=== PATIENT | male | born 1960 | race Caucasian/White ===

== ENCOUNTER → 2017-04-14 | Outpatient (CLI) | payer OTHER ==
[2017-04-14 08:11] LABS: HEMATOCRIT 44.2 % (39.2-51.8); HEMOGLOBIN 14.9 g/dL (13.7-18.0); WHITE BLOOD COUNT 5.4 x10^3/uL (3.4-10)
[2017-04-14 08:22] LABS: ASPARTATE AMINO TRANSFERASE 22 U/L (15-37); BLOOD UREA NITROGEN 19 mg/dL (7-18)
== END | disposition home or self-care (01) ==
LOC: LAB 07:53
PROVIDERS: ATTEND Internal Medicine
DX: Z12.11 Encounter for screening for malignant neoplasm of colon (principal); Z79.899 Other long term (current) drug therapy
CPT/HCPCS: 36415; 80053; 80061; 81003; 82306; 83036; 84153; 84443; 85025; G0103

== ENCOUNTER → 2018-09-17 | Outpatient (CLI) | payer OTHER ==
[2018-09-17 07:42] LABS: CULTURE INDICATED? NO; MICROSCOPIC NOT IND
[2018-09-17 07:49] LABS: ALANINE AMINOTRANSFERASE 30 U/L (12-78); ALBUMIN 3.9 g/dL (3.4-5.0); ANION GAP 4 mmol/L (5-15); BASOPHILS # (AUTO) 0.02 x10^3/uL (0-0.1); BASOPHILS % (AUTO) 0 % (0-1); CALCIUM 8.8 mg/dL (8.5-10.1); CHLORIDE 107 mmol/L (98-107); CHOLESTEROL, TOTAL 238 mg/dL (140-239); CREATININE 1.07 mg/dL (0.7-1.3); EOSINOPHILS # (AUTO) 0.09 x10^3/uL (0-0.4); EOSINOPHILS % (AUTO) 2 % (1-7); LYMPHOCYTES % (AUTO) 39 % (22-44); MD NO; MEAN CORPUSCULAR HEMOGLOBIN 29.8 pg (27.5-34.5); MEAN CORPUSCULAR HGB CONC 33.4 g/dL (33.2-36.2); MEAN CORPUSCULAR VOLUME 89.1 fL (81-97); MEAN PLATELET VOLUME 8.2 fL (7.4-10.4); MONOCYTES # (AUTO) 0.38 x10^3/uL (0.2-0.8); MONOCYTES % (AUTO) 7 % (2-9); NEUTROPHILS # (AUTO) 2.63 x10^3/uL (1.8-6.8); NEUTROPHILS % (AUTO) 51 % (42-75); PLATELET COUNT 285 x10^3/uL (130-400); RED CELL DISTRIBUTION WIDTH 13.8 % (9.4-14.8)
[2018-09-17 08:00] LABS: ALKALINE PHOSPHATASE 55 U/L (45-117); BILIRUBIN,TOTAL 0.5 mg/dL (0.2-1.0); CHOL/HDL RATIO 2.9; HDL CHOL % 34 % (26-37); HDL CHOLESTEROL (DIRECT) 81 mg/dL (40-60); LDL CHOLESTEROL,CALCULATED 142 mg/dL (54-169); LDL/HDL RATIO 1.8 (0.5-3.0); PSA SCREEN 2.34 ng/mL (0.00-4.00); TOTAL PROTEIN 7.5 g/dL (6.4-8.2); TRIGLYCERIDES 74 mg/dL (50-200); VLDL CHOLESTEROL 15 mg/dL (0-25)
[2018-09-17 08:02] LABS: HEMOGLOBIN A1C 6.1 % (4.2-6.3)
== END | disposition home or self-care (01) ==
LOC: LAB 07:13
PROVIDERS: ATTEND Internal Medicine
DX: Z00.00 Encounter for general adult medical examination without abnormal findings (principal)
CPT/HCPCS: 36415; 80053; 80061; 81003; 82306; 83036; 84443; 85025; G0103

== ENCOUNTER → 2020-01-21 | Outpatient (CLI) | payer OTHER ==
[2020-01-21 09:11] LABS: ALANINE AMINOTRANSFERASE 27 U/L (12-78); ALBUMIN 3.8 g/dL (3.4-5.0); ANION GAP 5 mmol/L (5-15); BASOPHILS # (AUTO) 0.03 x10^3/uL (0-0.1); BASOPHILS % (AUTO) 1 % (0-1); CALCIUM 9.2 mg/dL (8.5-10.1); CHLORIDE 109 mmol/L (98-107); EOSINOPHILS # (AUTO) 0.07 x10^3/uL (0-0.4); EOSINOPHILS % (AUTO) 1 % (1-7); LYMPHOCYTES # (AUTO) 1.88 x10^3/uL (1-3.4); LYMPHOCYTES % (AUTO) 36 % (22-44); MD NO; MEAN CORPUSCULAR HEMOGLOBIN 29.4 pg (27.5-34.5); MEAN CORPUSCULAR VOLUME 89.1 fL (81-97); MEAN PLATELET VOLUME 7.7 fL (7.4-10.4); MONOCYTES # (AUTO) 0.43 x10^3/uL (0.2-0.8); MONOCYTES % (AUTO) 8 % (2-9); NEUTROPHILS # (AUTO) 2.75 x10^3/uL (1.8-6.8); NEUTROPHILS % (AUTO) 53 % (42-75); PLATELET COUNT 338 x10^3/uL (130-400); RED BLOOD COUNT 4.86 x10^6/uL (4.38-5.82); RED CELL DISTRIBUTION WIDTH 13.5 % (9.4-14.8)
[2020-01-21 09:15] LABS: MICROSCOPIC NOT IND
[2020-01-21 09:22] LABS: ALKALINE PHOSPHATASE 58 U/L (45-117); BILIRUBIN,TOTAL 0.6 mg/dL (0.2-1.0); CHOL/HDL RATIO 3.1; CHOLESTEROL, TOTAL 239 mg/dL (140-239); HDL CHOL % 32 % (26-37); HDL CHOLESTEROL (DIRECT) 76 mg/dL (40-60); LDL CHOLESTEROL,CALCULATED 152 mg/dL (54-169); TOTAL PROTEIN 7.6 g/dL (6.4-8.2); TRIGLYCERIDES 54 mg/dL (50-200); VLDL CHOLESTEROL 11 mg/dL (0-25)
== END | disposition home or self-care (01) ==
LOC: LAB 08:35
PROVIDERS: ATTEND Internal Medicine
DX: Z00.00 Encounter for general adult medical examination without abnormal findings (principal)
CPT/HCPCS: 36415; 80053; 80061; 83036; 84153; 84443; 85025; 86803

== ENCOUNTER 2021-02-15 07:42 | Outpatient (CLI) | payer OTHER ==
[2021-02-15 08:02] LABS: MICROSCOPIC NOT IND
[2021-02-15 08:12] LABS: ALANINE AMINOTRANSFERASE 32 U/L (12-78); ANION GAP 7 mmol/L (5-15); CALCIUM 8.9 mg/dL (8.5-10.1); CHLORIDE 107 mmol/L (98-107); CHOLESTEROL, TOTAL 260 mg/dL (140-239)
[2021-02-15 08:14] LABS: BASOPHILS % (AUTO) 1 % (0-1); EOSINOPHILS % (AUTO) 2 % (1-7); LYMPHOCYTES % (AUTO) 44 % (22-44); MEAN CORPUSCULAR HEMOGLOBIN 30.7 pg (27.5-34.5); MEAN CORPUSCULAR HGB CONC 34.2 g/dL (33.2-36.2); MONOCYTES % (AUTO) 9 % (2-9); NEUTROPHILS % (AUTO) 45 % (42-75); PLATELET COUNT 252 x10^3/uL (130-400); RED BLOOD COUNT 4.79 x10^6/uL (4.38-5.82); RED CELL DISTRIBUTION WIDTH 13.4 % (9.4-14.8)
[2021-02-15 08:24] LABS: ALKALINE PHOSPHATASE 56 U/L (45-117); BILIRUBIN,TOTAL 0.7 mg/dL (0.2-1.0); CHOL/HDL RATIO 2.7; HDL CHOL % 38 % (26-37); HDL CHOLESTEROL (DIRECT) 98 mg/dL (40-60); LDL CHOLESTEROL,CALCULATED 149 mg/dL (54-169); LDL/HDL RATIO 1.5 (0.5-3.0); TOTAL PROTEIN 7.8 g/dL (6.4-8.2); TRIGLYCERIDES 65 mg/dL (50-200); VLDL CHOLESTEROL 13 mg/dL (0-25)
== END 2021-02-15 23:59 | disposition home or self-care (01) ==
LOC: LAB 07:42
PROVIDERS: ATTEND Internal Medicine
DX: Z00.00 Encounter for general adult medical examination without abnormal findings (principal); Z12.5 Encounter for screening for malignant neoplasm of prostate; E55.9 Vitamin D deficiency, unspecified
CPT/HCPCS: 36415; 80053; 80061; 81003; 82306; 83036; 84153; 84443; 85025; G0103